=== PATIENT | male | born 1980 | race Caucasian/White ===

== ENCOUNTER → 2022-09-25 13:06 | Outpatient (CLI) | payer BC, SELFPAY ==
--- NOTE | 2022-09-25 13:12 | US_ITS ---
FINAL REPORT CLINICAL HISTORY: SCROTAL FULLNESS COMPARISON: None FINDINGS: SCROTAL ULTRASOUND FINDINGS: Testes have a homogeneous architecture. No masses are seen. Normal flow is demonstrated by Doppler exam. No significant fluid collections are present. There is a 4 mm cyst present in the right epididymal head, and a 6 mm cyst present in the left epididymal head compatible with spermatoceles. A small left varicocele is present as well. IMPRESSION: Bilateral epididymal spermatoceles and a small left varicocele. Reviewed, Interpreted and Dictated by Jun Virk MD Transcribed by Maida Gonzalez Authenticated and [facility]
== END ==
PROVIDERS: PCP Family Medicine; Visit Provider Family Medicine
DX: N50.89 Other specified disorders of the male genital organs (principal)
CPT/HCPCS: 76870